=== PATIENT | male | born 1955 | race Caucasian/White ===

== ENCOUNTER 2021-10-03 11:54 | Day surgery (SDC) | payer OTHER, SELFPAY ==
--- NOTE | 2021-10-03 06:48 | ANES.PREOP_ITS ---
General Info Date of Service Date Performed: 10/03/21 Height: 6 ft 2 in Weight: 113.398 kg Body Mass Index (BMI): 32.1 Surgical Procedure: Operation Date: 10/03/21 15:40 Proposed Procedure Side Surgeon p Cataract Extraction with IOL Implant Right Junito Ayers MD Meds Allergies and Home Medications Allergies Allergy/AdvReac Type Severity Reaction Status Date / Time No Known Allergies Allergy Verified 10/03/21 12:19 Home Medication Medication Instructions Recorded atorvastatin 40 mg tablet 40 mg PO HS 09/28/21 cholecalciferol (vitamin D3) 25 1,000 unit PO DAILY 09/28/21 mcg (1,000 unit) tablet (Vitamin D3) garlic 1 cap PO DAILY 09/28/21 bvcatgjg-rkasypki-xjdyp acid 400 1 tab PO DAILY 09/28/21 mcg-vit K 20 mcg-lycop 300 mcg tablet (Men's Multivitamin) omega 4-jhx-csg-fish oil 300 1 cap PO DAILY 09/28/21 mg-1,000 mg capsule (Fish Oil) sertraline 100 mg tablet 100 mg PO DAILY 09/28/21 Current Visit Medications: Current Medications Generic Name Dose Route Start Last Admin Trade Name Freq PRN Reason Stop Dose Admin Acetaminophen 1,000 mg 10/03/21 06:00 Acetaminophen 500 Mg Tab PO Q4H PRN PRN Miscellaneous Medication 0 ml 10/03/21 06:00 Prednisolone 1%, Moxifloxacin 0.5%, Nepafenac 0.1% 5ml Btl OD DIRECTED [facility] Miscellaneous Medication 0 ml 10/03/21 06:00 Tropicam./Phenyleph. (1/2.5%) 5 Ml Btl OD DIRECTED [facility] Tetracaine HCl 0 ml 10/03/21 06:00 Tetracaine 0.5% 4 Ml Btl OD DIRECTED [facility] PFSH Medical History Medical History Depression Dyslipidemia Surgical History Surgical History H/O umbilical hernia repair Hx of cholecystectomy Hx of colonoscopy with polypectomy Tobacco Smoking/Tobacco Use Status: Former Tobacco Use Alcohol Alcohol Intake: current Alcohol intake frequency: a few times a week Alcohol type: beer Substance Use Substance use: Never Substance use type: does not use Vital Signs and Lab Results Vital Signs Most Recent Vital Signs in EMR: Temp Pulse Resp BP Pulse Ox 36.4 C L 67 16 125/72 98 10/03/21 12:17 10/03/21 12:17 10/03/21 12:17 10/03/21 12:17 10/03/21 12:17 Lab Results Blood Type / Crossmatch: No Data to Display Complete Blood Count: No Data to Display Complete Metabolic Panel: No Data to Display Liver Function Panel: No Data to Display Coagulation Panel: No Data to Display Cardiac Panel: No Data to Display Arterial Blood Gas: No Data to Display Venous Blood Gas: No Data to Display Pancreas Panel: No Data to Display Thyroid Panel: No Data to Display Infectious Disease: No Data to Display Blood Cultures: No Data to Display Toxicology Panel: No Data to Display Anesthesia Assessment and Plan Anesthesia History Personal History: No History of Anesthesia Complications Family History: No Family History of Anesthesia Complications Exercise Tolerance Exercise Tolerance: Metabolic Equivalents>4 Cardiac & Pulmonary Exam Cardiac Exam: Normal S1/S2 Heart Sounds Pulmonary Exam: Clear Bilateral Breath Sounds Implantable Cardiac Device Does patient have a Pacemaker or an ICD?: No Airway Exam Known Difficult Airway: No Mallampati Class: 3 Mouth Opening: Normal (> 3cm) Thyromental Distance: Greater than 3 cm Neck Range of Motion: Full ROM Neck Circumference: Normal Teeth Condition: Normal Dentition ASA Classification ASA Score: ASA 2 Emergency Case?: No NPO Status NPO Status: NPO Clears >2 hours, Solids >8 hours Anesthesia Plan Resuscitation Status: Full Code Anesthesia Technique: MAC Anesthesia Airway Planned: Natural Airway Monitors Used: Standard Monitors Preoperative Comments:: 65 yo male for cataract removal. Sig PMHx: former smoker, occ EtOH, depression. plan: No MKo.
[2021-10-03 12:17] VITALS: BP 125/72; PULSE 67; RESP 16; TEMP 36.4; O2SAT 98
[2021-10-03] MEDS: Tropicam./Phenyleph. (1/2.5%) 5 ML BTL OD ×3 (12:27→12:38)
[2021-10-03 12:59] VITALS: BMI 32.1
--- NOTE | 2021-10-03 13:53 | W.PM.DSUDISC ---
Discharge Plan Disposition Patient Disposition: HOME Condition: Good Discharge Details Attending Provider: Junito Ayers Primary Care Provider: No,Local Home Meds and New Rx's Prescriptions: No Action atorvastatin 40 mg Tablet 40 mg PO HS sertraline 100 mg Tablet 100 mg PO DAILY garlic Capsule 1 cap PO DAILY cholecalciferol (vitamin D3) [Vitamin D3] 25 mcg (1,000 unit) Tablet 1,000 unit PO DAILY omega 1-afp-kro-fish oil [Fish Oil] 300-1,000 mg Capsule 1 cap PO DAILY Men's Multivitamin 400-20-300 mcg Tablet 1 tab PO DAILY Discharge Instructions Stand Alone Forms: Post-op Topical Cataract, Zachary Nelson ([facility]U) Discharge Orders Discharge Orders: Discharge Order (Routine); Ordered 10/03/21 Ordered By: Junito Ayers DS: Diagnosis Discharge Diagnosis (1) Nuclear sclerotic cataract of right eye: Status: Resolved (2) Cortical cataract of right eye: Status: Resolved
[2021-10-03] MEDS: Tetracaine 0.5% 4 ML BTL OD (14:14)
[2021-10-03] MEDS: Balanced Salt Soln.-PLUS 500 ML BAG (14:15)
[2021-10-03] MEDS: Duovisc Viscoelastic System EACH 1 EACH (14:15)
[2021-10-03] MEDS: Lidocaine 2% Jelly 6 ML SYR (14:16)
[2021-10-03] MEDS: Povidone-Iodine Ophth 30 ML BTL (14:17)
--- NOTE | 2021-10-03 14:32 | ROE_ITS ---
Date of service: 10/03/21 Time of Service: 15:13 Operative Note Operative Note DATE OF PROCEDURE: 10/03/21 PRE-OP DIAGNOSIS: Nuclear/posterior subcapsular cataract, right eye POST-OP DIAGNOSIS: same PROCEDURE: Cataract extraction using phacoemulsification with intraocular lens implant, right eye SURGEON: Junito Ayers ANESTHESIA TYPE: Local By Surgeon and MAC Refer to Anesthesia Record ESTIMATED BLOOD LOSS: 0 PATHOLOGY: none sent COMPLICATIONS: None Patient was transported to: same day Patient's condition: stable Implants: [employer]/TREY Tecnis [id number] Indications: Progressive visual loss due to cataract, right eye Procedure Description: CATARACT SURGERY OPERATIVE REPORT PREOPERATIVE DIAGNOSIS: 1. Nuclear/posterior subcapsular cataract, right eye POSTOPERATIVE DIAGNOSIS: Same OPERATION: 1. Cataract extraction using phacoemulsification with posterior chamber intraocular lens implant, right eye. IOL: IOL Wildlife Conservationist/Model: [employer] / TREY Tecnis [id number] IOL Power: + 19.0 diopters IOL Serial Number: [id number] Optic Diameter: 6.0mm Haptic/Overall Diameter: 13.0mm PHACO INFO: Lopez MDSaveurion Vision System with OZil and Active Fluidics Cumulative Dispersed Energy (CDE): 8.60 seconds SURGEON: Junito Ayers MD, ARABELLA ANESTHESIA: Monitored Anesthesia Care (MAC), with local sub-tenon's anesthetic infiltration COMPLICATIONS: None SPECIMENS: None INDICATIONS FOR PROCEDURE: The patient is a 65-year-old male with history of diminished visual acuity in his right eye secondary to the development of nuclear and posterior subcapsular cataract. The option of cataract surgery was offered to the patient and he felt he was symptomatic enough that he wished to proceed. PROCEDURE: The correct surgical eye was identified and marked as the right eye and the pupil was dilated in the preoperative area using mydriatics and cycloplegics. The dilated pupil size was 7.0 mm. He elected to proceed without oral sedation. The patient was brought to the operating room where cardiopulmonary monitoring was instituted and surgical time-out was performed, confirming the correct operative eye and IOL power. Topical anesthesia was administered and ophthalmic povidone-iodine 5% was instilled into the conjunctival fornices. Lidocaine gel was applied to the cornea and the ashlee-ocular area was prepped with Betadine 10% solution and draped in the usual sterile fashion for intraocular surgery, including an aperture drape. A Tegaderm transparent film dressing was cut in half and used to cover the lashes and lid margins. Care was taken to sequester the lashes and lid margins under the Tegaderm dressing. A lid speculum was placed between the lids of the operative eye and the Lopez LuxOR Revalia operating microscope was maneuvered into position. Irving scissors were then used to make a conjunctival buttonhole approximately 6mm posterior to the limbus in the inferonasal quadrant. Blunt dissection was carried out to expose bare sclera, and a blunt-tipped sub-tenon?s anesthesia cannula was introduced and passed posteriorly along the globe where non- preserved plain lidocaine was injected into posterior sub-Tenon?s space. A sideport knife was used to make a paracentesis port inferotemporally. Intraocular phenylephrine/lidocaine was injected into the anterior chamber. The anterior chamber was filled with viscoelastic. A 2.4mm keratome knife was used to construct a 2-plane near-clear corneal tunnel extending 2.0mm into clear cornea superiortemporally. A flap was raised on the anterior capsule and capsulorhexis forceps were used to complete a continuous curvilinear capsulo rhexis of 5.0 mm. Balanced salt solution was then used to perform cortical cleaving hydrodissection and nuclear hydrodelineation until the lens could be freely rotated within the capsular bag. The lens nucleus was then disassembled and removed within the capsular bag and iris plane using phacoemulsification. Residual cortical material was removed using the I/A handpiece. The posterior capsule was carefully polished to remove as much residual lens epithelial cells as safely possible. The capsular bag was then inflated and the anterior chamber deepened with viscoelastic. The lens implant described above was inserted into the capsular bag using the TREY [place] Injector. A Kuglen hook was used to dial the IOL into position. Residual viscoelastic was then removed first from posterior to the IOL, then from the anterior chamber using the I/A handpiece. The lens implant was noted to center nicely within the capsular bag. The incisions were stromally hydrated, and the anterior chamber was reformed using BSS. Then 0.5cc of moxifloxacin 1.0mg/ml were injected into the capsular bag and anterior chamber. The incisions were checked with a Weck spear and found to be secure. Several drops of ophthalmic povidone-iodine 5% were then applied to the eye followed by two drops of Imprimis combination prednisolone/moxifloxacin/nepafenac solution. The drapes were removed and a clear plastic protective eye shield was placed over the eye. The patient was then returned to [facility] Day Surgery in stable condition.
[2021-10-03 14:44] VITALS: BP 123/78; PULSE 65; RESP 16; TEMP 36.4; O2SAT 98
--- NOTE | 2021-10-03 14:51 | W.ANESPOSTOP ---
Postoperative Evaluation Date, Time and Location Date Performed: 10/03/21 Time Performed: 14:51 Patient Location: Day Surgery Unit Vital Signs Most Recent Imported Vital Signs: Most Recent Vital Signs Temp Pulse Resp BP Pulse Ox 36.4 C L 65 16 123/78 98 10/03/21 14:44 10/03/21 14:44 10/03/21 14:44 10/03/21 14:44 10/03/21 14:44 Pain Score Most Recent Pain Score: Most Recent Pain Score Pain Level 0 10/03/21 14:44 Assessment Mental Status: Awake (Alert & Oriented to Patient Baseline) Airway and Respiratory Function: Patent airway with normal (patient baseline) respiratory exam Cardiovascular Function: Hemodynamically Stable Hydration Status: Adequately Hydrated Nausea & Vomiting: No Nausea or Vomiting Pain: Pt. Denies Any Pain Peripheral Nerve Block: Patient did not receive a nerve block
== END 2021-10-03 14:56 | disposition home or self-care (01) ==
PROVIDERS: Visit Provider Ophthalmology
PROC: (CPT 66984; principal; 2021-10-03 15:30)
DX: H25.11 Age-related nuclear cataract, right eye (principal); E78.5 Hyperlipidemia, unspecified; F32.A Depression, unspecified; Z79.899 Other long term (current) drug therapy
CPT/HCPCS: 66984; V2632